=== PATIENT | male | born 1960 | race African-American/Black ===

== ENCOUNTER 2023-10-31 12:27 | Emergency (ER) | payer MEDICAID, OTHER ==
[~2023-10-31] VITALS: Ht 180.3 cm; Wt 99.8 kg
[2023-10-31 13:11] LABS: BASOPHILS % 0.2 % (0.0-2.0); EOSINOPHILS % 2.5 % (0.0-5.0); HEMATOCRIT. 47.3 % (42.0-52.0); HEMOGLOBIN. 15.8 g/dL (14.0-18.0); LYMPHOCYTES % 25.6 % (20.0-50.0); MEAN CORPUSCULAR HEMOGLOBIN 29.3 pg (28.0-32.0); MEAN CORPUSCULAR HGB CONC 33.4 g/dL (31.0-37.0); MEAN CORPUSCULAR VOLUME 87.9 fL (80.0-94.0); MEAN PLATELET VOLUME 8.4 fl (7.4-10.4); MONOCYTES % 13.6 % (2.0-8.0); NEUTROPHILS % 58.1 % (40.0-76.0); PLATELET 184 x1000/uL (130-400); RED BLOOD CELL COUNT 5.38 mill/uL (4.7-6.1); RED CELL DISTRIBUTION WIDTH 14.4 % (11.6-14.6); WHITE BLOOD COUNT 7.8 x1000/uL (4.5-11.0)
[2023-10-31 13:17] LABS: CHLORIDE 105 mEq/L (98-107); POTASSIUM 3.9 mEq/L (3.5-5.1); SODIUM 139 mEq/L (136-145)
[2023-10-31 13:18] LABS: CALCIUM 8.9 mg/dL (8.7-10.4); CARBON DIOXIDE 29 mEq/L (21-32)
[2023-10-31 13:23] LABS: CREATININE 0.9 mg/dL (0.6-1.3); GLUCOSE 172 mg/dL (70-105); UREA NITROGEN BLOOD 15 mg/dL (9-23)
[2023-10-31 13:34] LABS: TROPONIN I HIGH SENSITIVITY < 4 ng/L (3.0-53)
[2023-10-31 14:50] VITALS: TEMP 98.1
[2023-10-31] MEDS: PREDNISONE 20MG TABLET PO STA (15:17)
[2023-10-31] MEDS ORDERED: ALBU6.7H15 INH (15:36)
[2023-10-31] MEDS ORDERED: P50 MT (15:36)
[2023-10-31] MEDS: IPRATROPIUM BROMIDE (0.02%) 0.5MG/2.5ML NEB HHN STA (16:01)
[2023-10-31 16:02] VITALS: PULSE 82; RESP 20; O2SAT 100
[2023-10-31] MEDS: ALBUTEROL (0.083%) 2.5MG/3ML NEB HHN SCH (16:02)
[2023-10-31 16:36] VITALS: PULSE 93; RESP 20; O2SAT 100
[2023-10-31 16:50] VITALS: PULSE 77; RESP 23; O2SAT 100
[2023-10-31 17:22] VITALS: BP 150/77; PULSE 82; RESP 20
== END 2023-10-31 17:23 | disposition home or self-care (01) ==
LOC: ER 12:27
DX: J44.1 Chronic obstructive pulmonary disease with (acute) exacerbation (principal); Z88.6 Allergy status to analgesic agent; Z91.013 Allergy to seafood
CPT/HCPCS: 80048; 85025; 84484; 36415; 71045; 94640; 93005; 99285; J7512; Z7610 ×3